=== PATIENT | female | born 1985 | race Caucasian/White ===

== ENCOUNTER 2016-12-08 10:43 | Outpatient (CLI) | payer BC ==
[2016-12-08 11:46] LABS: AMNISURE (ROM) NEGATIVE (NEGATIVE)
[2016-12-08 11:50] LABS: APPEARANCE,URINE CLEAR; BILIRUBIN,URINE NEGATIVE (NEGATIVE); GLUCOSE, URINE NEGATIVE (NEGATIVE); KETONES,URINE NEGATIVE (NEGATIVE); LEUKOCYTE ESTERASE,URINE NEGATIVE (NEGATIVE); NITRITE,URINE NEGATIVE (NEGATIVE); PROTEIN,URINE NEGATIVE (NEGATIVE); URINE SPECIFIC GRAVITY 1.021; UROBILINOGEN,URINE NEGATIVE mg/dL (<2.0)
--- NOTE | 2016-12-08 12:00 | L&D Flow Sheet ---
LD Flowsheet Datetime Report Generated by CPN: 12/08/2016 12:00 Datetime: 12/08/2016 11:51 Vaginal Exam Exam by: C. Salazar CNM (Bianca Chowdhury, RN) Vaginal Exam Comments: closed (Bianca Chowdhury, RN) Communication Communication Comments: wet prep collected and sent (Bianca Chowdhury, RN) Datetime: 12/08/2016 11:46 Communication Communication Comments: C. Salazar CNM at bedside (Bianca Chowdhury, RN) Datetime: 12/08/2016 11:33 Assessment A Monitor Interventions for FHR: Ultrasound Adjusted (Bianca Chowdhury, RN) Patient Care Patient Position/Activity: Left Lateral (Bianca Chowdhury, RN) Datetime: 12/08/2016 11:28 Uterine Activity Frequency (min): pt states 3 minutes apart (Bianca Chowdhury RN) Pain Pain Scale: 3 (Bianca Chowdhury RN) Pain Presence: Intermittent (Bianca Chowdhury RN) Pain Type: Contraction (Bianca Chowdhury RN) Pain Location: Abdomen (Bianca Chowdhury RN) Vaginal Bleeding: None (Bianca Chowdhury RN) Maternal Assessment Level of Consciousness: Fully Conscious (Bianca Chowdhury RN) DTR's/Clonus: DTRs 2+; No Clonus (Bianca Chowdhury RN) Headache: Generalized (Bianca Chowdhury RN) Breath Sounds, Left: Clear and Equal (Bianca Chowdhury RN) Breath Sounds, Right: Clear and Equal (Bianca Chowdhury RN) Nausea/Vomiting: Present (Bianca Chowdhury RN) RUQ Epigastric Pain: Denies (Bianca Chowdhury, RN) Teaching Instructional Method: Verbal; Patient Instructed; Family/Support Person Instructed; Verbalized Understanding (Bianca Chowdhury RN) Plan of Care: Plan of Care Discussed (Bianca Chowdhury RN) Unit Routine: [place] to Room; Call Pink; Bed; Handwashing; Monitoring; Bathroom Privileges (Bianca Chowdhury RN) Datetime: 12/08/2016 11:14 Vital Signs NBP Sys/[place]/Mean (mmHg): 98 (QS system process) : 56 (QS system process) : 70 (QS system process) Pulse: 83 (QS system process)
[2016-12-08 12:13] LABS: URINE BARBITURATES SCREEN NEGATIVE; URINE METHADONE SCREEN NEGATIVE; URINE OPIATES LOW NEGATIVE; URINE PHENCYCLIDINE SCREEN NEGATIVE
== END 2016-12-08 12:31 | disposition home or self-care (01) ==
LOC: LC 10:43
PROVIDERS: ATTEND Obstetrics & Gynecology
PROC: 4A1HXCZ Monitoring of Products of Conception, Cardiac Rate, External Approach (ICD-10-PCS; principal; 2016-12-08)
DX: O23.593 Infection of other part of genital tract in pregnancy, third trimester (principal); O98.813 Other maternal infectious and parasitic diseases complicating pregnancy, third trimester; O99.283 Endocrine, nutritional and metabolic diseases complicating pregnancy, third trimester; E86.0 Dehydration; Z3A.30 30 weeks gestation of pregnancy
CPT/HCPCS: 80307; 81001; 84112; 87210

== ENCOUNTER 2016-12-20 20:15 | Outpatient (CLI) | payer BC ==
[2016-12-20 21:35] LABS: APPEARANCE,URINE CLEAR; BILIRUBIN,URINE NEGATIVE (NEGATIVE); GLUCOSE, URINE NEGATIVE (NEGATIVE); KETONES,URINE TRACE mg/dL (NEGATIVE); LEUKOCYTE ESTERASE,URINE NEGATIVE (NEGATIVE); NITRITE,URINE NEGATIVE (NEGATIVE); PROTEIN,URINE NEGATIVE (NEGATIVE); URINE SPECIFIC GRAVITY 1.009; UROBILINOGEN,URINE NEGATIVE mg/dL (<2.0)
[2016-12-20 22:02] LABS: URINE BARBITURATES SCREEN NEGATIVE; URINE METHADONE SCREEN NEGATIVE; URINE OPIATES LOW NEGATIVE; URINE PHENCYCLIDINE SCREEN NEGATIVE
== END 2016-12-20 22:54 | disposition home or self-care (01) ==
LOC: LC 20:15
PROVIDERS: ATTEND Obstetrics & Gynecology
PROC: 4A1HXCZ Monitoring of Products of Conception, Cardiac Rate, External Approach (ICD-10-PCS; principal; 2016-12-20)
DX: Z34.93 Encounter for supervision of normal pregnancy, unspecified, third trimester (principal); Z36 Encounter for antenatal screening of mother; Z3A.31 31 weeks gestation of pregnancy
CPT/HCPCS: 80307; 81001

== ENCOUNTER 2017-02-08 07:45 | Inpatient (IN) | payer BC ==
[2017-02-13 12:03] LABS: HEMATOCRIT 32.8 % (36.0-47.0); HEMOGLOBIN 10.5 g/dL (12.0-15.5); HGB HCT DIFFERENCE -1.3; MEAN CORPUSCULAR HEMOGLOBIN 20.1 pg (27.0-33.4); MEAN CORPUSCULAR HGB CONC 31.9 g/dL (32.0-36.0); RED BLOOD COUNT 5.19 10^6/uL (3.72-5.28); RED CELL DISTRIBUTION WIDTH 14.8 % (11.5-14.0); WHITE BLOOD COUNT 8.7 10^3/uL (4.0-10.5)
[2017-02-13 12:08] LABS: APPEARANCE,URINE SLIGHTLY-CLOUDY; BILIRUBIN,URINE NEGATIVE (NEGATIVE); GLUCOSE, URINE 50 mg/dL (NEGATIVE); KETONES,URINE NEGATIVE (NEGATIVE); LEUKOCYTE ESTERASE,URINE NEGATIVE (NEGATIVE); NITRITE,URINE NEGATIVE (NEGATIVE); PROTEIN,URINE NEGATIVE (NEGATIVE); URINE SPECIFIC GRAVITY 1.018; UROBILINOGEN,URINE NEGATIVE mg/dL (<2.0)
[2017-02-13 12:22] LABS: URINE BARBITURATES SCREEN NEGATIVE; URINE METHADONE SCREEN NEGATIVE; URINE OPIATES LOW NEGATIVE; URINE PHENCYCLIDINE SCREEN NEGATIVE
[2017-02-13 12:27] LABS: MEAN CORPUSCULAR VOLUME 63 fl (80-97)
[2017-02-13 12:31] LABS: BASOPHILS % (MANUAL) 0 % (0-2); EOSINOPHILS % (MANUAL) 0 % (0-6); HYPOCHROMASIA 1+; LYMPHOCYTES % (MANUAL) 22 % (13-45); MICROCYTOSIS 3+; OVALOCYTES 2+; POIKILOCYTOSIS 2+; POLYCHROMASIA SLIGHT; ROULEAUX SLIGHT; SCHISTOCYTES SLIGHT; TEAR DROP CELLS SLIGHT; TOTAL CELLS COUNTED 100; TOXIC GRANULATION SLIGHT
[2017-02-14] MEDS ORDERED: LACTATED RINGERS 1000 ML IV PRN (05:00)
[2017-02-14] MEDS ORDERED: LIDOCAINE 0.5% INJ-PF (5 MG/ML) 50 ML SDV SUBCUT PRN (05:00)
[2017-02-14] MEDS ORDERED: CEFAZOLIN 2 GM/D5W RTU 2 GM/50 ML RTUPB IV PRN (05:00)
[2017-02-14] MEDS ORDERED: FENTANYL CITRATE INJ/PF 100 MCG/2 ML AMPUL ONE (06:55)
[2017-02-14] MEDS ORDERED: FENTANYL CITRATE INJ/PF 250 MCG/5 ML AMPULE ONE (06:55)
[2017-02-14] MEDS ORDERED: OXYTOCIN 10 UNIT/ML VIAL ONE (06:55)
[2017-02-14] MEDS ORDERED: OXYTOCIN/NORMAL SALINE 20 UNIT/1,000 ML RTUINJ ONE (06:56)
[2017-02-14] MEDS ORDERED: EPHEDRINE SULFATE INJ 50 MG/1 ML AMPULE ONE (06:56)
[2017-02-14] MEDS ORDERED: MIDAZOLAM 2 MG/2 ML INJ ONE (06:56)
[2017-02-14] MEDS ORDERED: ONDANSETRON HCL INJ/PF 4 MG/2 ML SDV ONE (06:56)
[2017-02-14] MEDS ORDERED: MISOPROSTOL 0.2 MG TABLET ONE (07:59)
[2017-02-14] MEDS ORDERED: NALBUPHINE HCL INJ 10 MG/1 ML AMPULE ONE (09:06)
[2017-02-14] MEDS ORDERED: ACETAMINOPHEN 100 ML IV ONE (09:23)
[2017-02-14] MEDS ORDERED: MORPHINE SULFATE 10 MG/ML INJ ONE (10:20)
--- NOTE | 2017-02-14 16:36 | OPERATIVE REPORT E ---
Operative Report NAME: BOUBACAR MONTALVO : 1985 AGE: 31Y DATE OF SURGERY: 02/14/2017 ROOM: PREOPERATIVE DIAGNOSES: INTRAUTERINE AT 39+ WEEKS WITH HISTORY OF SECTION, DESIRE FOR REPEAT AND DESIRE FOR SCAR REVISION. POSTOPERATIVE DIAGNOSES: INTRAUTERINE AT 39+ WEEKS WITH HISTORY OF SECTION, DESIRE FOR REPEAT AND DESIRE FOR SCAR REVISION. OPERATION: 1. Repeat low transverse cervical section. 2. Scar revision. SURGEON: MO CASTANEDA M.D. ANESTHESIA: Spinal. ESTIMATED BLOOD LOSS: 600 mL. TISSUE REMOVED OR ALTERED: Specimen to pathology, placenta. FINDINGS: [place] female infant in vertex presentation, clear amniotic fluid. Apgars of 8 and 9. Weight 8 pounds 13 ounces. Normal uterus, tubes and ovaries. PROCEDURE: After discussing risks, benefits and alternatives of the procedure and obtaining informed consent, the patient was taken to the operating room where spinal anesthesia was achieved. She was positioned in the dorsal supine position with a left hogue tilt. She was prepped and draped in the usual standard fashion. The hypertrophic old scar was excised in an elliptical fashion. The abdomen was entered in layers in the standard fashion. A small bladder flap was made sharply. The *------* knife was used to make a low transverse cervical incision. The surgeon's hand was entered into the hysterotomy incision and a copious amount of clear amniotic fluid delivered, followed by the baby's head. The shoulders and body delivered easily thereafter. The cord was clamped x2 and cut. The was handed to pediatrics who were present. The placenta was manually extracted. The uterus was exteriorized and cleared of all clots and debris. The hysterotomy incision was closed with 0 Monocryl in a running locked fashion. An area of oozing was oversewn on the left aspect of the uterus. Excellent hemostasis was then observed. The uterus, tubes and ovaries were returned to the peritoneal cavity. The cavity was irrigated and hemostasis again assured. A layer of INTERCEED was placed in an inverted T fashion over the anterior aspect of the uterus and the lower uterine segment. The peritoneum was closed in a running fashion with 2-0 Vicryl. The rectus muscles were loosely reapproximated with interrupted 2-0 Vicryl. The subfascial spaces were inspected and hemostasis achieved with cautery. The fascia was closed with #1 Vicryl. The subcutaneous tissues were irrigated and hemostasis achieved with cautery. Then 3-0 plain gut was used to reapproximate the subcutaneous space and Ellie fascia. The skin was closed in a subcuticular fashion with 4-0 Monocryl. An Op-Site dressing was placed. Due to copious amniotic fluid and relatively large baby, Cytotec 1000 mcg was placed per rectum to help prevent uterine atony. The patient was taken to recovery in stable condition. All sponge, lap, needle and instrument counts were correct x2. DICTATING PHYSICIAN: MO CASTANEDA M.D. [id number] PHY#: [id number] ID: [id number] JOB#: [id number] ACCT: [id number] cc:MO CASTANEDA M.D. >
[2017-02-14] MEDS ORDERED: PROMETHAZINE HCL INJ 25 MG/1 ML VIAL IM PRN (18:38)
[2017-02-14] MEDS ORDERED: SIMETHICONE 80 MG TAB.CHEW PO PRN (18:38)
[2017-02-14] MEDS ORDERED: OXYCODONE-ACETAMINOPHEN 5-325 MG TABLET PO PRN (18:38)
[2017-02-14] MEDS ORDERED: DIPH/PERTUSS(ACELL)/TETANUS VAC/PF 0.5 ML SYR (>=10YO) IM PRN (18:38)
[2017-02-14] MEDS ORDERED: HYDROMORPHONE HCL INJ/PF 2 MG/ML AMPULE IV PRN (18:38)
[2017-02-14] MEDS ORDERED: ACETAMINOPHEN 325 MG TABLET PO PRN (18:38)
[2017-02-14] MEDS ORDERED: MEASLES,MUMPS&RUBELLA VACC/PF 0.5 ML VIAL SUBCUT PRN (18:38)
[2017-02-14] MEDS ORDERED: OXYTOCIN/NORMAL SALINE 20 UNIT/1,000 ML RTUINJ INJ PRN (18:38)
[2017-02-14] MEDS ORDERED: ONDANSETRON 4 MG TAB.RAPDIS PO PRN (18:39)
[2017-02-14] MEDS ORDERED: PHENYLEPHRINE HCL INJ/PF 10 MG/1 ML SDV ONE (19:15)
[2017-02-14] MEDS: OXYCODONE-ACETAMINOPHEN 5-325 MG TABLET PO PRN (22:29)
[2017-02-15] MEDS: IBUPROFEN 800 MG TABLET PO SCH ×4 (00:07→17:44)
[2017-02-15 08:02] LABS: HEMATOCRIT 29.9 % (36.0-47.0); HEMOGLOBIN 9.6 g/dL (12.0-15.5); HGB HCT DIFFERENCE -1.1; MEAN CORPUSCULAR HEMOGLOBIN 20.4 pg (27.0-33.4); MEAN CORPUSCULAR HGB CONC 32.3 g/dL (32.0-36.0); MEAN CORPUSCULAR VOLUME 63 fl (80-97); RED BLOOD COUNT 4.74 10^6/uL (3.72-5.28); RED CELL DISTRIBUTION WIDTH 15.4 % (11.5-14.0); WHITE BLOOD COUNT 10.6 10^3/uL (4.0-10.5)
--- NOTE | 2017-02-15 08:35 | PDOC PROGRESS REPORT ---
Subjective-OB Subjective: Post Delivery Day: 31 year old. Denies any needs at this time OOB sitting in chair, feeling well, pain under control, eating well, passing gas this AM, hsb at BS, scant lochia, breast feeding Physical Exam (OB) Vital Signs: Temp Pulse Resp BP Pulse Ox 97.6 F 85 18 120/67 98 02/15/17 00:10 02/15/17 00:10 02/15/17 00:10 02/15/17 00:10 02/15/17 00:10 Intake & Output 02/14/17 02/15/17 02/16/17 06:59 06:59 06:59 Output Total 850 900 Balance -850 -900 - Dressing Removed: No - opsite Incision: Draining - Lochia Lochia Amount: Small 10-25 ml Lochia Color: Rubra/Red - Abdomen Description: Soft, Round Hernia Present: No Fundal Description: Firm, Midline Fundal Height: u/u - u/2 Assessment and Plan(PN) - Assessment and Plan (1) delivery delivered Is this a current diagnosis for this admission?: Yes (2) Delivery by emergency caesarean section Is this a current diagnosis for this admission?: Yes (3) Premature rupture of membranes Qualifiers: PROM onset of labor timing: onset of labor within 24 hours of rupture PROM gestational age: full term Qualified Code(s): O42.02 - Full-term premature rupture of membranes, onset of labor within 24 hours of rupture Is this a current diagnosis for this admission?: Yes (4) Non-reassuring status, delivered, current hospitalization Is this a current diagnosis for this admission?: Yes - Time Spent with Patient Time with patient: Less than 15 minutes Medications reviewed and adjusted accordingly: Yes - Disposition Anticipated Discharge: Home Within: within 24 hours
[2017-02-15] MEDS: DOCUSATE SODIUM 100 MG CAPSULE PO SCH ×2 (09:52→17:44)
[2017-02-15] MEDS: OXYCODONE-ACETAMINOPHEN 5-325 MG TABLET PO PRN ×3 (10:06→22:12)
[2017-02-15] MEDS: PRENATAL VITAMIN W-O CA NO5/FE FUMARATE/FA CAPSULE PO SCH (15:36)
[2017-02-16] MEDS: IBUPROFEN 800 MG TABLET PO SCH ×3 (00:05→13:09)
[2017-02-16] MEDS: DOCUSATE SODIUM 100 MG CAPSULE PO SCH (10:12)
[2017-02-16] MEDS: PRENATAL VITAMIN W-O CA NO5/FE FUMARATE/FA CAPSULE PO SCH (10:13)
--- NOTE | 2017-02-16 12:18 | PDOC PROGRESS REPORT ---
Subjective-OB Subjective: Post Delivery Day: 31 year old. Denies any needs at this time. Ready to go home. Physical Exam (OB) Vital Signs: Temp Pulse Resp BP Pulse Ox 98.2 F 74 17 110/61 96 02/16/17 11:57 02/16/17 11:57 02/16/17 11:57 02/16/17 11:57 02/16/17 11:57 Intake & Output 02/15/17 02/16/17 02/17/17 06:59 06:59 06:59 Intake Total 500 400 500 Output Total 1550 900 Balance -1050 -500 500 - Dressing Removed: No - D&I, no swelling, redness or new drainage noted Incision: Well Approximated Closure Type: opsite - Lochia Lochia Amount: Scant < 10 ml Lochia Color: Rubra/Red - Abdomen Description: Tender, Soft Hernia Present: No Bowel Sounds: Normoactive Flatus Presence: Present Stool: No Fundal Description: Firm, Midline Fundal Height: u/u - u/2 Objective-Diagnostic Laboratory: 02/15/17 06:57 Assessment and Plan(PN) - Time Spent with Patient Medications reviewed and adjusted accordingly: Yes - Disposition Anticipated Discharge: Home
--- NOTE | 2017-02-16 12:25 | PDOC DISCHARGE SUMMARY ---
Final Diagnosis Discharge Date: 02/16/17 - Final Diagnosis (1) Obesity Is this a current diagnosis for this admission?: Yes (2) delivery delivered Is this a current diagnosis for this admission?: Yes (3) Delivery by emergency caesarean section Is this a current diagnosis for this admission?: Yes (4) Non-reassuring status, delivered, current hospitalization Is this a current diagnosis for this admission?: Yes (5) Is this a current diagnosis for this admission?: Yes (6) Premature rupture of membranes Is this a current diagnosis for this admission?: Yes Discharge Data - Discharge Medication Home Medications: Pnv with Ca,No.72/Iron/FA [Pnv Plus Multivit Tab] 1 tab PO DAILY Docusate Sodium [Colace 100 mg Capsule] 100 mg PO BID #30 capsule 02/16/17 Ibuprofen [Motrin 800 mg Tablet] 800 mg PO Q6 #30 tablet 02/16/17 Oxycodone HCl/Acetaminophen [Percocet 5-325 mg Tablet] 1 tab PO Q4HP PRN #20 tablet 02/16/17 Gestational Age: 39+ wks Reason(s) for Admission: Ceasarean Section-Repeat Intrapartum Procedure(s): : Low Cervical, Transverse - Data Baby 1 Female at 1 minute: 8 at 5 minutes: 9 Weight: 3.997 kg Home with Mother: Yes Complications: No - Diagnosis Test Laboratory: Temp Pulse Resp BP Pulse Ox 98.2 F 74 17 110/61 96 02/16/17 11:57 02/16/17 11:57 02/16/17 11:57 02/16/17 11:57 02/16/17 11:57 02/13/17 02/13/17 02/15/17 11:25 11:28 06:57 RBC 5.19 4.74 Hgb 10.5 L 9.6 L Hct 32.8 L 29.9 L Urine Opiates Screen NEGATIVE - Discharge information/Instructions Discharge Activity: Balance Activity w/Rest, No Lifting Over 10 Pounds, Pelvic Rest, Slowly Increase Activity, No tub bath Discharge Diet: Regular Disposition: HOME, SELF-CARE Follow up with: [facility] in: 1, Weeks
[2017-02-16 13:08] VITALS: BP 119/63
[2017-02-16 17:56] LABS: PATH REVIEW PATHOLOGIST REVIEWED
--- NOTE | 2017-02-22 14:56 | PDOC DELIVERY SUMMARY ---
Delivery Summary - Maternal FOSTER: 02/15/17 Gestational Age: 39+ wks Ruptured Membranes: AROM Time of Rupture: 08:10 Fluids: Clear - Delivery Presentation: Vertex Support Person Present: Yes - SHAREE Location: LD : Scheduled, Repeat Placenta: Within Normal Limits Delivery of Placenta Date: 02/14/17 Delivery of Placenta Time: 08:12 - Medications Type of Anesthesia:: Spinal - Assess and Care Baby 1 Female Delivery of Date: 02/14/17 Delivery of Time: 08:11 at 1 minute: 8 at 5 minutes: 9 Preprinted Number On Band: [id number] Skin to Skin: No To Nursery At: 08:19 Mode of Transport: Bassinet Infant Weight: 39.9 kg Length: 20.25 in - Delivery Personnel Nursery RN: UNIQUE LAWSON Nursery RN: SHANITA UMANZOR RN: COLTEN KIRK RN: COLTEN CHATTERJEE MD: MOOK Digital Advertising Specialist: KALEIGH
== END 2017-02-16 13:18 | disposition home or self-care (01) | DRG 766 ==
LOC: 2S 02-14 05:03
PROVIDERS: ADMIT Specialist; ATTEND Specialist
PROC: 10D00Z1 Extraction of Products of Conception, Low, Open Approach (ICD-10-PCS; principal; 2017-02-14 07:45)
DX: O34.211 Maternal care for low transverse scar from previous cesarean delivery (principal); O76 Abnormality in fetal heart rate and rhythm complicating labor and delivery; O42.02 Full-term premature rupture of membranes, onset of labor within 24 hours of rupture; O99.214 Obesity complicating childbirth; N85.8 Other specified noninflammatory disorders of uterus; E66.9 Obesity, unspecified; Z68.35 Body mass index [BMI] 35.0-35.9, adult; Z3A.39 39 weeks gestation of pregnancy; Z37.0 Single live birth
CPT/HCPCS: 1961; 36415; 59025; 80307; 81001; 85025; 85027; 86850; 86900; 86901; 88307; 94799; C1765; J0131; J2250; J2270; J2300; J2370; J2405; J2590; J3010; J3490

== ENCOUNTER 2017-12-05 06:11 | Day surgery (SDC) | payer SELFPAY ==
[2017-12-05 06:53] LABS: APPEARANCE,URINE SLIGHTLY-CLOUDY; BILIRUBIN,URINE NEGATIVE (NEGATIVE); COLOR,URINE YELLOW; GLUCOSE, URINE NEGATIVE (NEGATIVE); KETONES,URINE NEGATIVE (NEGATIVE); LEUKOCYTE ESTERASE,URINE SMALL (NEGATIVE); NITRITE,URINE POSITIVE (NEGATIVE); PROTEIN,URINE NEGATIVE (NEGATIVE); URINE SPECIFIC GRAVITY 1.028; UROBILINOGEN,URINE NEGATIVE mg/dL (<2.0)
[2017-12-05] MEDS ORDERED: OXYTOCIN 10 UNIT/ML VIAL ONE (06:53)
[2017-12-05] MEDS ORDERED: MIDAZOLAM 2 MG/2 ML INJ ONE ×2 (06:53→07:26)
[2017-12-05] MEDS ORDERED: FENTANYL CITRATE INJ/PF 100 MCG/2 ML AMPUL ONE (06:53)
[2017-12-05] MEDS ORDERED: ONDANSETRON HCL INJ/PF 4 MG/2 ML SDV ONE (06:54)
[2017-12-05] MEDS ORDERED: PROPOFOL INJ 200 MG/20 ML VIAL IV ONE ×2 (06:54→08:26)
[2017-12-05] MEDS ORDERED: EPHEDRINE SULFATE INJ 50 MG/1 ML AMPULE ONE (06:54)
[2017-12-05 06:55] LABS: HEMATOCRIT 38.7 % (36.0-47.0); HEMOGLOBIN 12.3 g/dL (12.0-15.5); MEAN CORPUSCULAR HEMOGLOBIN 19.8 pg (27.0-33.4); MEAN CORPUSCULAR HGB CONC 31.7 g/dL (32.0-36.0); MEAN CORPUSCULAR VOLUME 63 fl (80-97); PLATELET COUNT 242 10^3/uL (150-450); RED CELL DISTRIBUTION WIDTH 15.2 % (11.5-14.0); WHITE BLOOD COUNT 8.5 10^3/uL (4.0-10.5)
[2017-12-05] MEDS ORDERED: LIDOCAINE 2% INJ-PF (20 MG/ML) 10 ML AMPUL ONE (07:24)
[2017-12-05] MEDS ORDERED: CITRIC ACID/SODIUM CITRATE ORAL SOLN 15 ML UDCUP ONE (07:26)
[2017-12-05] MEDS ORDERED: METOCLOPRAMIDE HCL INJ/PF 10 MG/2 ML SDV ONE (07:26)
[2017-12-05] MEDS ORDERED: FAMOTIDINE INJ/PF 20 MG/2 ML SDV IV ONE (07:27)
[2017-12-05] MEDS ORDERED: ALBUTEROL SULFATE 0.083% NEB 2.5 MG/3 ML AMPUL NEB ONE (07:37)
[2017-12-05] MEDS ORDERED: DIPHENHYDRAMINE HCL 50 MG/ML VIAL IV PRN (08:09)
[2017-12-05] MEDS ORDERED: PROMETHAZINE HCL INJ 25 MG/1 ML VIAL IV PRN (08:09)
[2017-12-05] MEDS ORDERED: FENTANYL CITRATE INJ/PF 100 MCG/2 ML AMPUL IV PRN ×3 (08:09)
[2017-12-05] MEDS ORDERED: OXYCODONE-ACETAMINOPHEN 5-325 MG TABLET PO PRN (08:35)
[2017-12-05] MEDS ORDERED: IBUPROFEN 800 MG TABLET PO PRN (08:35)
[2017-12-05] MEDS ORDERED: ONDANSETRON 4 MG TAB.RAPDIS PO PRN (08:37)
[2017-12-05] MEDS ORDERED: OXYCODONE-ACETAMINOPHEN 5-325 MG TABLET ONE (08:50)
[2017-12-05 09:58] VITALS: BP 122/60
--- NOTE | 2017-12-05 11:14 | OPERATIVE REPORT E ---
Operative Report NAME: BOUBACAR MONTALVO : 1985 AGE: 32Y DATE OF SURGERY: 12/05/2017 ROOM: PREOPERATIVE DIAGNOSIS: MISSED . POSTOPERATIVE DIAGNOSIS: MISSED . OPERATION: Suction D and C. ESTIMATED BLOOD LOSS: Less than 50 mL. SURGEON: Burak KANG M.D. ANESTHESIA: General. TISSUE REMOVED OR ALTERED: Products of conception. PROCEDURE: The patient was placed in the dorsal lithotomy position and prepped and draped in the sterile fashion. The speculum was placed. The cervix was visualized and grasped with a single-tooth tenaculum and the uterus sounded to a depth of 10 cm. The cervix was dilated to sufficiently admit a #8 suction catheter. Suction curettage was performed, followed by sharp curettage, followed by repeat suction. The single-tooth tenaculum was removed. Hemostasis was noted. She was taken to the Recovery Room in good condition. DICTATING PHYSICIAN: Burak KANG M.D. [id number] PHY#: [id number] ID: [id number] JOB#: [id number] ACCT: [id number] cc:Burak KANG M.D. >
== END 2017-12-05 10:02 | disposition home or self-care (01) ==
LOC: OROUT 06:11
PROVIDERS: ATTEND Obstetrics & Gynecology Gynecology
PROC: 10D17ZZ Extraction of Products of Conception, Retained, Via Natural or Artificial Opening (ICD-10-PCS; principal; 2017-12-05 08:00)
DX: O02.1 Missed abortion (principal); F17.210 Nicotine dependence, cigarettes, uncomplicated; K21.9 Gastro-esophageal reflux disease without esophagitis; Z79.899 Other long term (current) drug therapy; Z88.0 Allergy status to penicillin
CPT/HCPCS: 1965; 36415; 81001; 85027; 88305; J2250; J2405; J2590; J2704; J2765; J3010; J3490; S0028